=== PATIENT | female | born 1980 | race Two or more races ===

== ENCOUNTER 2018-04-29 08:09 | Emergency (ER) | payer OTHER ==
[~2018-04-29] VITALS: Ht 157.5 cm; Wt 81.6 kg
[2018-04-29 08:11] VITALS: BP 122/90; Ht 157.5 cm; Wt 81.6 kg
== END 2018-04-29 10:27 | disposition home or self-care (01) ==
LOC: ED 08:09
DX: J20.9 Acute bronchitis, unspecified (principal); Z88.0 Allergy status to penicillin

== ENCOUNTER 2018-07-24 13:11 | Emergency (ER) | payer OTHER ==
[~2018-07-24] VITALS: Ht 157.5 cm; Wt 83.5 kg
[2018-07-24 13:12] VITALS: BP 157/85; Ht 157.5 cm; Wt 83.5 kg
== END 2018-07-24 13:47 | disposition home or self-care (01) ==
LOC: ED 13:11
DX: R51 Headache (principal); H92.01 Otalgia, right ear; Z88.0 Allergy status to penicillin